=== PATIENT | male | born 1955 | race Caucasian/White ===

== ENCOUNTER → 2017-04-07 | Outpatient (CLI) | payer OTHER ==
[~2017-04-07] MED LIST: ASPIR 8181 MG PO; COZAAR 50 MG TA50 M2 PO; FISH OIL 1,001000 M2 PO; INVOKANA300 MG PO; JANUVIA100 MG PO; METFORMIN HCL500 MG PO; PRILOSEC OTC20 MG PO; SYNTHROID200 MCG PO; VITAMIN E400 UNIT PO; ZETIA10 MG PO; ZOCOR20 MG PO
[2017-04-07 10:23] LABS: HEMATOCRIT 50.7 % (42.0-52.0); HEMOGLOBIN 17.1 gm/dL (14.0-18.0); MCH 30.1 pg (26.0-34.0); MCHC 33.8 g/dL (28.0-37.0); MPV 8.4 fl. (7.2-11.1); RBC 5.69 mil/uL (4.50-6.00); RDW-CV 13.5 % (10.5-14.5); WBC 8.6 thou/uL (4.0-11.0)
[2017-04-07 10:27] LABS: URINE BILIRUBIN NEGATIVE (Negative); URINE BLOOD TRACE (Negative); URINE CLARITY CLEAR; URINE COLOR YELLOW; URINE GLUCOSE-RANDOM 3+ (Negative); URINE KETONES NEGATIVE (Negative); URINE LEUKOCYTES NEGATIVE (Negative); URINE NITRITE NEGATIVE (Negative); URINE PROTEIN NEGATIVE (Negative); URINE SPECIFIC GRAVITY >= 1.030 (1.005-1.030); URINE UROBILINOGEN 0.2 E.U./dl (0.2-1.0)
[2017-04-07 10:39] LABS: ALBUMIN 3.9 g/dL (3.4-5.0); ALKALINE PHOSPHATASE 39 U/L (46-116); ANION GAP 9 mmol/L (7-16); BUN 21 mg/dL (7-18); CALCIUM 8.8 mg/dL (8.5-10.1); CHLORIDE 104 mmol/L (98-107); CHOLESTEROL 150 mg/dL (<200); CO2 30 mmol/L (21-32); GLUCOSE 139 mg/dL (70-99); HDL CHOLESTEROL 44 mg/dL (>40); LDL CHOLESTEROL 92 mg/dL (<100); POTASSIUM 4.3 mmol/L (3.5-5.1); SERUM ASSESSMENT Clear; SGOT 19 U/L (15-37); SGPT 37 U/L (30-65); SODIUM 143 mmol/L (136-145); TC:HDL 3.4 Ratio (Not establshd); TOTAL BILIRUBIN 0.4 mg/dL (<0.1-1.0); TOTAL PROTEIN 8.1 g/dL (6.4-8.2); TRIGLYCERIDE 73 mg/dL (<150); VLDL 15 mg/dL (<40)
[2017-04-07 19:12] LABS: GLYCOHEMOGLOBIN (HGB A1C) 5.9 % (4.8-5.6)
== END ==
LOC: M.LAB 09:55
PROVIDERS: Family Medicine
DX: E11.9 Type 2 diabetes mellitus without complications (principal); E03.9 Hypothyroidism, unspecified

== ENCOUNTER → 2017-09-21 | Outpatient (CLI) | payer OTHER ==
[2017-09-21 10:43] LABS: ALKALINE PHOSPHATASE 41 U/L (46-116); ANION GAP 11 mmol/L (7-16); BUN 15 mg/dL (7-18); CHLORIDE 106 mmol/L (98-107); CHOLESTEROL 148 mg/dL (<200); CO2 26 mmol/L (21-32); CREATININE 0.9 mg/dL (0.6-1.3); GLUCOSE 170 mg/dL (70-99); HDL CHOLESTEROL 35 mg/dL (>40); LDL CHOLESTEROL 88 mg/dL (<100); POTASSIUM 4.1 mmol/L (3.5-5.1); SGOT 34 U/L (15-37); SGPT 83 U/L (30-65); SODIUM 143 mmol/L (136-145); TC:HDL 4.2 Ratio (Not establshd); TOTAL BILIRUBIN 0.6 mg/dL (<0.1-1.0); TOTAL PROTEIN 7.8 g/dL (6.4-8.2); TRIGLYCERIDE 129 mg/dL (<150); VLDL 26 mg/dL (<40)
[2017-09-21 10:47] LABS: SERUM ASSESSMENT Clear
[2017-09-22 16:08] LABS: GLYCOHEMOGLOBIN (HGB A1C) 7.3 % (4.8-5.6)
== END ==
LOC: M.LAB 09:18
PROVIDERS: Family Medicine
DX: E11.9 Type 2 diabetes mellitus without complications (principal); E78.5 Hyperlipidemia, unspecified

== ENCOUNTER 2017-10-19 12:38 | Emergency (ER) | payer OTHER ==
[~2017-10-19] VITALS: Ht 177.8 cm; Wt 113.4 kg
[2017-10-19] MEDS ORDERED: METFORMIN HCL500 MG PO (12:56)
[2017-10-19] MEDS ORDERED: INVOKANA300 MG PO (12:56)
[2017-10-19] MEDS ORDERED: ZETIA10 MG PO (12:57)
[2017-10-19] MEDS ORDERED: COZAAR 50 MG TA50 M2 PO (12:57)
[2017-10-19] MEDS ORDERED: ZOCOR20 MG PO (12:57)
[2017-10-19] MEDS ORDERED: SYNTHROID200 MCG PO (12:57)
[2017-10-19] MEDS ORDERED: JANUVIA100 MG PO (12:57)
[2017-10-19] MEDS ORDERED: ASPIR 8181 MG PO (12:58)
[2017-10-19] MEDS ORDERED: FISH OIL 1,001000 M2 PO (12:58)
[2017-10-19] MEDS ORDERED: PRILOSEC OTC20 MG PO (12:58)
[2017-10-19] MEDS ORDERED: VITAMIN E400 UNIT PO (12:59)
[2017-10-19 14:28] VITALS: BP 164/82
== END 2017-10-19 14:31 | disposition home or self-care (01) ==
LOC: M.ERS 12:38
DX: S61.411A Laceration without foreign body of right hand, initial encounter (principal); E11.9 Type 2 diabetes mellitus without complications; I10 Essential (primary) hypertension; E78.00 Pure hypercholesterolemia, unspecified; K21.9 Gastro-esophageal reflux disease without esophagitis; W45.8XXA Other foreign body or object entering through skin, initial encounter; Y93.89 Activity, other specified; Y92.89 Other specified places as the place of occurrence of the external cause; Y99.8 Other external cause status

== ENCOUNTER → 2018-04-12 | Outpatient (CLI) | payer OTHER ==
[2018-04-12 09:44] LABS: HEMATOCRIT 48.8 % (42.0-52.0); HEMOGLOBIN 16.6 gm/dL (14.0-18.0); MCH 29.8 pg (26.0-34.0); MCV 87.7 fL (80.0-100.0); MPV 8.7 fl. (7.2-11.1); RBC 5.56 mil/uL (4.50-6.00); RDW-CV 14.3 % (10.5-14.5); WBC 7.5 thou/uL (4.0-11.0)
[2018-04-12 09:54] LABS: ALBUMIN 3.9 g/dL (3.4-5.0); ALKALINE PHOSPHATASE 38 U/L (46-116); ANION GAP 11 mmol/L (7-16); BUN 17 mg/dL (7-18); CALCIUM 8.7 mg/dL (8.5-10.1); CHLORIDE 104 mmol/L (98-107); CHOLESTEROL 144 mg/dL (<200); CO2 27 mmol/L (21-32); GLUCOSE 147 mg/dL (70-99); HDL CHOLESTEROL 33 mg/dL (>40); LDL CHOLESTEROL 91 mg/dL (<100); POTASSIUM 3.9 mmol/L (3.5-5.1); SERUM ASSESSMENT Clear; SGOT 38 U/L (15-37); SGPT 93 U/L (30-65); SODIUM 142 mmol/L (136-145); TC:HDL 4.4 Ratio (Not establshd); TOTAL BILIRUBIN 0.5 mg/dL (<0.1-1.0); TOTAL PROTEIN 7.9 g/dL (6.4-8.2); TRIGLYCERIDE 102 mg/dL (<150); VLDL 20 mg/dL (<40)
[2018-04-12 23:07] LABS: GLYCOHEMOGLOBIN (HGB A1C) 7.6 % (4.8-5.6)
== END ==
LOC: M.LAB 09:08
PROVIDERS: Family Medicine
DX: Z00.00 Encounter for general adult medical examination without abnormal findings (principal); E11.9 Type 2 diabetes mellitus without complications; E78.5 Hyperlipidemia, unspecified; I10 Essential (primary) hypertension

== ENCOUNTER → 2018-10-19 | Outpatient (CLI) | payer MEDICARE, OTHER ==
[2018-10-19 09:35] LABS: ABSOLUTE BASOPHILS 0.1 thou/uL (0.0-0.2); ABSOLUTE EOSINOPHILS 0.1 thou/uL (0.0-0.7); ABSOLUTE LYMPHOCYTES 2.3 thou/uL (0.8-5.3); ABSOLUTE MONOCYTES 0.5 thou/uL (0.0-1.2); ABSOLUTE NEUTROPHILS 4.3 thou/uL (1.6-8.1); BASOPHILS 0.8 %; EOSINOPHILS 1.3 %; HEMOGLOBIN 16.1 gm/dL (14.0-18.0); MCH 29.8 pg (26.0-34.0); MCHC 33.5 g/dL (28.0-37.0); MCV 89.1 fL (80.0-100.0); MONOCYTES 6.4 %; MPV 8.2 fl. (7.2-11.1); NUCLEATED RBCS 0 /100WBC; PLATELET COUNT* 235 thou/uL (150-400); POLYS 59.5 %; RBC 5.39 mil/uL (4.50-6.00); RDW-CV 13.8 % (10.5-14.5); WBC 7.3 thou/uL (4.0-11.0)
[2018-10-19 09:50] LABS: ALBUMIN 3.9 g/dL (3.4-5.0); ALKALINE PHOSPHATASE 41 U/L (46-116); ANION GAP 9 mmol/L (7-16); BUN 19 mg/dL (7-18); CALCIUM 8.9 mg/dL (8.5-10.1); CHLORIDE 103 mmol/L (98-107); CHOLESTEROL 137 mg/dL (<200); CO2 29 mmol/L (21-32); GLUCOSE 135 mg/dL (70-99); HDL CHOLESTEROL 34 mg/dL (>40); LDL CHOLESTEROL 83 mg/dL (<100); POTASSIUM 4.1 mmol/L (3.5-5.1); SERUM ASSESSMENT Clear; SGOT 25 U/L (15-37); SGPT 51 U/L (30-65); SODIUM 141 mmol/L (136-145); TOTAL BILIRUBIN 0.7 mg/dL (<0.1-1.0); TOTAL PROTEIN 7.5 g/dL (6.4-8.2); TRIGLYCERIDE 103 mg/dL (<150); VLDL 21 mg/dL (<40)
[2018-10-20 03:07] LABS: GLYCOHEMOGLOBIN (HGB A1C) 6.7 % (4.8-5.6)
== END ==
LOC: M.LAB 09:13
PROVIDERS: Family Medicine
DX: I10 Essential (primary) hypertension (principal); E11.69 Type 2 diabetes mellitus with other specified complication; E66.9 Obesity, unspecified; K21.9 Gastro-esophageal reflux disease without esophagitis; E03.9 Hypothyroidism, unspecified; E78.5 Hyperlipidemia, unspecified; Z12.5 Encounter for screening for malignant neoplasm of prostate

== ENCOUNTER 2019-02-17 13:25 | Emergency (ER) | payer MEDICARE, OTHER ==
[~2019-02-17] VITALS: Ht 177.8 cm; Wt 108.9 kg
[2019-02-17] MEDS ORDERED: BYDUREON B2 MG/0.85 SUBQ (13:52)
[2019-02-17] MEDS ORDERED: TURMERIC500 M2 PO (13:53)
[2019-02-17 14:22] LABS: ABSOLUTE BASOPHILS 0.1 thou/uL (0.0-0.2); ABSOLUTE EOSINOPHILS 0.1 thou/uL (0.0-0.7); ABSOLUTE LYMPHOCYTES 2.7 thou/uL (0.8-5.3); ABSOLUTE MONOCYTES 1.8 thou/uL (0.0-1.2); ABSOLUTE NEUTROPHILS 6.9 thou/uL (1.6-8.1); BASOPHILS 0.7 %; EOSINOPHILS 0.5 %; HEMATOCRIT 40.3 % (42.0-52.0); HEMOGLOBIN 14.1 gm/dL (14.0-18.0); LYMPHOCYTES 23.3 %; MCH 29.4 pg (26.0-34.0); MONOCYTES 15.4 %; MPV 8.5 fl. (7.2-11.1); NUCLEATED RBCS 0 /100WBC; PLATELET COUNT* 281 thou/uL (150-400); POLYS 60.1 %; RDW-CV 13.2 % (10.5-14.5); WBC 11.5 thou/uL (4.0-11.0)
[2019-02-17 14:23] LABS: INFLUENZA A ANTIGEN Negative (Negative); INFLUENZA B ANTIGEN Negative (Negative)
[2019-02-17 14:33] LABS: CALCIUM 9.1 mg/dL (8.5-10.1); CREATININE 1.1 mg/dL (0.6-1.3); POTASSIUM 3.5 mmol/L (3.5-5.1)
[2019-02-17 14:43] LABS: ALBUMIN 3.2 g/dL (3.4-5.0); TOTAL BILIRUBIN 0.6 mg/dL (<0.1-1.0); TOTAL PROTEIN 8.4 g/dL (6.4-8.2)
[2019-02-17] MEDS ORDERED: DOXYCYCLINE 10100 MG PO (15:33)
[2019-02-17] MEDS ORDERED: VENTOLIN HFA 1818 GM INH (15:33)
[2019-02-17 16:34] VITALS: BP 150/86
--- NOTE | 2019-02-18 12:30 | EKG ---
[place] [address] ELECTROCARDIOGRAM REPORT Name: NEGRITA ZAMUDIO Room: [facility].#: [id number] Admission: 02/17/19 Attend Phys: Discharge: 02/17/19 Date of : 51 Report #: [id number] THIS REPORT FOR: //name// [facility] ED Test Date: 2019-02-17 Test Time: 14:30:13 Pat Name: NEGRITA ZAMUDIO Department: Room: Gender: M Automatic Clipper: DEANGELO : 1955 Requested By: Carolyn Villafuerte Order Number: [id number] MD: Alexei Mclean Measurements Intervals [place] Rate: 90 P: 63 [place]: 173 QRS: 71 QRSD: 108 T: 25 QT: 361 QTc: 442 Interpretive Statements Sinus rhythm Probable left atrial enlargement No previous ECG available for comparison Electronically Signed On 02-18-2019 12:29:52 [employer] by Alexei Mclean [email or web address] <ELECTRONICALLY SIGNED> By: Alexei Mclean MD, [facility] 02/18/19 1229 1430 1430 Alexei Mclean MD, FACC /EPI
== END 2019-02-17 16:35 | disposition home or self-care (01) ==
LOC: M.ERS 13:25
PROVIDERS: Nurse Practitioner Family
DX: J18.8 Other pneumonia, unspecified organism (principal); E11.9 Type 2 diabetes mellitus without complications; I10 Essential (primary) hypertension; E78.00 Pure hypercholesterolemia, unspecified; K21.9 Gastro-esophageal reflux disease without esophagitis

== ENCOUNTER 2019-04-11 14:34 | Inpatient (IN) | payer MEDICARE, OTHER ==
[~2019-04-11] VITALS: Ht 177.8 cm; Wt 113.4 kg
[~2019-04-11 14:34] MED LIST changes: +BYDUREON B2 MG/0.85 SUBQ; +DOXYCYCLINE 10100 MG PO; +TURMERIC500 M2 PO; +VENTOLIN HFA 1818 GM INH
[2019-04-11 14:43] VITALS: BP 187/114
[2019-04-11 16:28] LABS: ABSOLUTE BASOPHILS 0.1 thou/uL (0.0-0.2); ABSOLUTE EOSINOPHILS 0.3 thou/uL (0.0-0.7); ABSOLUTE LYMPHOCYTES 3.1 thou/uL (0.8-5.3); ABSOLUTE NEUTROPHILS 5.7 thou/uL (1.6-8.1); BASOPHILS 0.6 %; EOSINOPHILS 2.8 %; HEMATOCRIT 44.1 % (42.0-52.0); HEMOGLOBIN 15.2 gm/dL (14.0-18.0); LYMPHOCYTES 30.2 %; MCH 29.5 pg (26.0-34.0); MCHC 34.5 g/dL (28.0-37.0); MCV 85.6 fL (80.0-100.0); MONOCYTES 10.3 %; MPV 8.6 fl. (7.2-11.1); NUCLEATED RBCS 0 /100WBC; PLATELET COUNT* 252 thou/uL (150-400); POLYS 56.1 %; RBC 5.15 mil/uL (4.50-6.00); RDW-CV 14.3 % (10.5-14.5); WBC 10.2 thou/uL (4.0-11.0)
[2019-04-11 16:30] LABS: INFLUENZA A ANTIGEN Negative (Negative); INFLUENZA B ANTIGEN Negative (Negative)
[2019-04-11 16:34] LABS: APTT 25.9 Seconds (25.0-31.3); CREATININE 0.9 mg/dL (0.6-1.3); POTASSIUM 3.8 mmol/L (3.5-5.1)
[2019-04-11 16:45] LABS: ALBUMIN 3.7 g/dL (3.4-5.0); TOTAL BILIRUBIN 0.3 mg/dL (<0.1-1.0); TOTAL PROTEIN 7.9 g/dL (6.4-8.2)
[2019-04-11] MEDS ORDERED: MEDROLDOSEPACK PO (17:26)
[2019-04-11] MEDS ORDERED: AUGMENTIN 875-1 EACH PO (17:27)
[2019-04-11 19:43] VITALS: BP 175/85
[2019-04-11 20:00] VITALS: BP 181/96
[2019-04-11 22:05] VITALS: BP 182/99
[2019-04-12 03:56] VITALS: BP 172/108
[2019-04-12 06:30] VITALS: BP 158/105
[2019-04-12 07:30] VITALS: BP 156/86
[2019-04-12 15:01] LABS: URINE BILIRUBIN NEGATIVE (Negative); URINE BLOOD NEGATIVE (Negative); URINE CLARITY CLEAR; URINE COLOR YELLOW; URINE GLUCOSE-RANDOM 3+ (Negative); URINE KETONES 2+ (Negative); URINE LEUKOCYTES-REFLEX NEGATIVE (Negative); URINE NITRITE-REFLEX NEGATIVE (Negative); URINE PROTEIN NEGATIVE (Negative); URINE UROBILINOGEN 0.2 E.U./dl (0.2-1.0)
[2019-04-12 16:00] VITALS: BP 154/68
--- NOTE | 2019-04-12 16:32 | EKG ---
[place] [address] ELECTROCARDIOGRAM REPORT Name: LIZZNEGRITA VENESSA Room: [address] ADM [place] .R.#: [id number] Admission: 04/11/19 Attend Phys: Ben Osborne Discharge: Date of : 51 Date of Service: 04/11/19 1602 Report #: [id number] THIS REPORT FOR: //name// [facility] ED Test Date: 2019-04-11 Test Time: 16:02:09 Pat Name: NEGRITA ZAMUDIO Department: Room: [facility] Gender: M Check Out Clerk: DAMASO : 1955 Requested By: Carolyn Villafuerte Order Number: [id number] MD: Alexei Mclean Measurements Intervals [place] Rate: 76 P: 49 [place]: 163 QRS: 73 QRSD: 110 T: 9 QT: 394 QTc: 444 Interpretive Statements Sinus rhythm Compared to ECG 02/17/2019 14:30:13 No significant changes Electronically Signed On 04-12-2019 16:31:04 [employer] by Alexei Mclean [email or web address] <ELECTRONICALLY SIGNED> By: Alexei Mclean MD, [facility] 04/12/19 1631 1602 1602 Alexei Mclean MD, [facility] /EPI
--- NOTE | 2019-04-12 16:35 | 2DMMODE ---
[place] [address] 2 D/M-MODE ECHOCARDIOGRAM Name: ZAMUDIONEGRITA Room: [address] IN [facility]#: [id number] Admission: 04/11/19 Attend Phys: Ben Osborne Discharge: Date of : 51 Date of Service: 04/12/19 1634 Report #: [id number] THIS REPORT FOR: cc: Kevin Fuentes,Watson Nelson MD [facility] ~ APPROVED REPORT Study performed: 04/12/2019 15:34:00 EXAM: Comprehensive 2D, Doppler, and color-flow Echocardiogram Patient Location: In-Patient Room #: [facility] BSA: 2.29 HR: 110 bpm BP: 156/86 mmHg Other Information Study Quality: Good Indications Recurrent pna 2D Dimensions IVSd: 12.83 (7-11mm) LVOT Diam: 21.00 (18-24mm) LVDd: 48.49 mm PWd: 11.94 (7-11mm) Ascending Ao: 33.14 (22-36mm) LVDs: 25.09 (25-40mm) Aortic Root: 25.99 mm Volumes Left Atrial Volume (Systole) LA ESV Index: 18.50 mL/m2 Aortic Valve AoV Peak Sundeep.: 1.65 m/s AO Peak Gr.: 10.89 mmHg LVOT Max P.83 mmHg AO Mean Gr.: 7.02 mmHg LVOT Mean P.47 mmHg LVOT Max V: 1.10 m/s AO V2 VTI: 30.01 cm LVOT Mean V: 0.73 m/s DARRICK (VTI): 2.33 cm2 LVOT V1 VTI: 20.23 [place] [address] 2 D/M-MODE ECHOCARDIOGRAM Name: NEGRITA ZAMUDIO Room: [address] IN .R.#: [id number] Admission: 04/11/19 Attend Phys: Ben Osborne Discharge: Date of : 51 Date of Service: 04/12/19 1634 Report #: [id number] Medial E' Sundeep.: 0.15 m/s Lateral E' Sundeep.: 0.13 m/s Pulmonary Valve PV Peak Sundeep.: 1.14 m/s PV Peak Gr.: 5.22 mmHg Left Ventricle The left ventricle is normal size. There is normal LV segmental wall motion. Mild concentric left ventricular hypertrophy. Left ventricular systolic function is normal. LVEF is 65-70%. Transmitral Doppler flow pattern suggests impaired LV relaxation. Right Ventricle The right ventricle is normal size. The right ventricular systolic function is normal. Atria The left atrium size is normal. The right atrium size is normal. Aortic Valve The aortic valve is normal in structure. No aortic regurgitation is present. There is no aortic valvular stenosis. Mitral Valve The mitral valve is normal in structure. There is no mitral valve regurgitation noted. No evidence of mitral valve stenosis. Tricuspid Valve The tricuspid valve is normal in structure. There is no tricuspid valve regurgitation noted. Pulmonic Valve The pulmonary valve is normal in structure. There is no pulmonic valvular regurgitation. Great Vessels The aortic root is normal in size. IVC is normal in size and collapses >50% with inspiration. Pericardium There is no pericardial effusion. <Conclusion> The left ventricle is normal size. Mild concentric [place] [address] 2 D/M-MODE ECHOCARDIOGRAM Name: NEGRITA ZAMUDIO Room: [address] [place] ..#: [id number] Admission: 04/11/19 Attend Phys: Ben Osborne Discharge: Date of : 51 Date of Service: 04/12/19 163 Report #: [id number] Left ventricular systolic function is normal. LVEF is 65-70%. Transmitral Doppler flow pattern suggests impaired LV relaxation. IVC is normal in size and collapses >50% with inspiration. <ELECTRONICALLY SIGNED> By: Watson Mitchell MD, [facility] 04/12/19 1634 33 163 Watson Mitchell MD, FACC /INF
[2019-04-12 20:00] VITALS: BP 158/90
[2019-04-13 08:28] LABS: HEMATOCRIT 44.2 % (42.0-52.0); HEMOGLOBIN 15.1 gm/dL (14.0-18.0); MCH 29.2 pg (26.0-34.0); MCHC 34.1 g/dL (28.0-37.0); MCV 85.7 fL (80.0-100.0); MPV 8.6 fl. (7.2-11.1); RBC 5.16 mil/uL (4.50-6.00); RDW-CV 14.6 % (10.5-14.5); WBC 18.8 thou/uL (4.0-11.0)
[2019-04-13 08:41] LABS: ALBUMIN 3.7 g/dL (3.4-5.0); CALCIUM 8.8 mg/dL (8.5-10.1); MAGNESIUM 1.8 mg/dL (1.8-2.4); POTASSIUM 3.8 mmol/L (3.5-5.1); TOTAL BILIRUBIN 0.4 mg/dL (<0.1-1.0); TOTAL PROTEIN 8.1 g/dL (6.4-8.2)
[2019-04-13 10:17] VITALS: BP 144/90
[2019-04-13 16:30] VITALS: BP 150/91
[2019-04-13 20:40] VITALS: BP 154/83
[2019-04-14 09:00] VITALS: BP 140/85
[2019-04-14] MEDS ORDERED: MEDROL4 M1 PO (09:45)
[2019-04-14] MEDS ORDERED: PROAIR HFA8.5 GM INH (09:45)
[2019-04-14] MEDS ORDERED: NORVASC5 MG PO (09:45)
[2019-04-14] MEDS ORDERED: CEFDINIR300 MG PO (09:45)
[2019-04-14] MEDS ORDERED: ADVAIR 100-501 EACH INH (09:45)
[2019-04-14 11:26] VITALS: BP 140/85
== END 2019-04-14 12:14 | disposition home or self-care (01) | DRG 177 ==
LOC: M.ERS 14:34 → M.TBA-ER 18:00 → M.ORTHSURG 18:00
PROVIDERS: Internal Medicine; Nurse Practitioner Family; ADMIT Internal Medicine
DX: J15.6 Pneumonia due to other Gram-negative bacteria (principal); J96.01 Acute respiratory failure with hypoxia; J44.1 Chronic obstructive pulmonary disease with (acute) exacerbation; E11.65 Type 2 diabetes mellitus with hyperglycemia; R91.1 Solitary pulmonary nodule; I10 Essential (primary) hypertension; D72.829 Elevated white blood cell count, unspecified; K21.9 Gastro-esophageal reflux disease without esophagitis; E03.9 Hypothyroidism, unspecified; E78.5 Hyperlipidemia, unspecified; E78.00 Pure hypercholesterolemia, unspecified; T38.0X5A Adverse effect of glucocorticoids and synthetic analogues, initial encounter; T80.89XA Other complications following infusion, transfusion and therapeutic injection, initial encounter; Y84.8 Other medical procedures as the cause of abnormal reaction of the patient, or of later complication, without mention of misadventure at the time of the procedure; E66.9 Obesity, unspecified; Z68.35 Body mass index [BMI] 35.0-35.9, adult; Z79.84 Long term (current) use of oral hypoglycemic drugs; Z79.82 Long term (current) use of aspirin; Z79.899 Other long term (current) drug therapy; Z72.89 Other problems related to lifestyle; Z80.1 Family history of malignant neoplasm of trachea, bronchus and lung; Z87.01 Personal history of pneumonia (recurrent); Z83.6 Family history of other diseases of the respiratory system; Z87.891 Personal history of nicotine dependence; Y92.89 Other specified places as the place of occurrence of the external cause; Z79.4 Long term (current) use of insulin; Z79.51 Long term (current) use of inhaled steroids

== ENCOUNTER → 2019-04-25 | Outpatient (CLI) | payer MEDICARE, OTHER ==
[~2019-04-25] MED LIST changes: +ADVAIR 100-501 EACH INH; +AUGMENTIN 875-1 EACH PO; +CEFDINIR300 MG PO; +MEDROL4 M1 PO; +MEDROLDOSEPACK PO; +NORVASC5 MG PO; +PROAIR HFA8.5 GM INH
[2019-04-25 09:05] LABS: ABSOLUTE BASOPHILS 0.1 thou/uL (0.0-0.2); ABSOLUTE EOSINOPHILS 0.2 thou/uL (0.0-0.7); ABSOLUTE LYMPHOCYTES 2.7 thou/uL (0.8-5.3); ABSOLUTE MONOCYTES 0.6 thou/uL (0.0-1.2); BASOPHILS 0.8 %; EOSINOPHILS 1.6 %; HEMATOCRIT 43.8 % (42.0-52.0); HEMOGLOBIN 15.6 gm/dL (14.0-18.0); LYMPHOCYTES 28.2 %; MCH 30.4 pg (26.0-34.0); MCHC 35.6 g/dL (28.0-37.0); MCV 85.3 fL (80.0-100.0); MONOCYTES 6.6 %; MPV 7.7 fl. (7.2-11.1); NUCLEATED RBCS 0 /100WBC; PLATELET COUNT* 247 thou/uL (150-400); POLYS 62.8 %; RBC 5.13 mil/uL (4.50-6.00); RDW-CV 14.4 % (10.5-14.5); WBC 9.5 thou/uL (4.0-11.0)
[2019-04-25 09:31] LABS: ALBUMIN 3.4 g/dL (3.4-5.0); ALKALINE PHOSPHATASE 42 U/L (46-116); ANION GAP 10 mmol/L (7-16); BUN 15 mg/dL (7-18); CALCIUM 8.1 mg/dL (8.5-10.1); CHLORIDE 102 mmol/L (98-107); CHOLESTEROL 145 mg/dL (<200); CO2 26 mmol/L (21-32); CREATININE 0.9 mg/dL (0.6-1.3); GLUCOSE 246 mg/dL (70-99); HDL CHOLESTEROL 40 mg/dL (>40); LDL CHOLESTEROL 83 mg/dL (<100); POTASSIUM 3.8 mmol/L (3.5-5.1); SERUM ASSESSMENT Clear; SGOT 24 U/L (15-37); SGPT 74 U/L (30-65); SODIUM 138 mmol/L (136-145); TC:HDL 3.6 Ratio (Not establshd); TOTAL BILIRUBIN 0.5 mg/dL (<0.1-1.0); TOTAL PROTEIN 7.3 g/dL (6.4-8.2); TRIGLYCERIDE 111 mg/dL (<150); VLDL 22 mg/dL (<40)
== END ==
LOC: M.LAB 08:33
PROVIDERS: Family Medicine
DX: Z12.5 Encounter for screening for malignant neoplasm of prostate (principal); E11.40 Type 2 diabetes mellitus with diabetic neuropathy, unspecified; E03.9 Hypothyroidism, unspecified; I10 Essential (primary) hypertension; E78.5 Hyperlipidemia, unspecified

== ENCOUNTER → 2019-08-01 | Outpatient (CLI) | payer MEDICARE, OTHER | LOC: M.LAB 09:11 | PROVIDERS: ATTEND Family Medicine | DX: E11.9 Type 2 diabetes mellitus without complications (principal) ==

== ENCOUNTER → 2019-08-23 | Outpatient (CLI) | payer MEDICARE, OTHER | LOC: M.LAB 10:46 | PROVIDERS: ATTEND Family Medicine | DX: Z11.59 Encounter for screening for other viral diseases (principal) ==

== ENCOUNTER → 2019-11-07 | Outpatient (CLI) | payer MEDICARE, OTHER ==
[2019-11-07 09:03] LABS: ALBUMIN 3.7 g/dL (3.4-5.0); ALKALINE PHOSPHATASE 38 U/L (46-116); ANION GAP 7 mmol/L (7-16); BUN 21 mg/dL (7-18); CALCIUM 8.9 mg/dL (8.5-10.1); CHLORIDE 102 mmol/L (98-107); CHOLESTEROL 141 mg/dL (<200); CO2 30 mmol/L (21-32); CREATININE 0.9 mg/dL (0.6-1.3); GLUCOSE 158 mg/dL (70-99); HDL CHOLESTEROL 35 mg/dL (>40); LDL CHOLESTEROL 84 mg/dL (<100); POTASSIUM 4.3 mmol/L (3.5-5.1); SGOT 18 U/L (15-37); SGPT 49 U/L (30-65); SODIUM 139 mmol/L (136-145); TOTAL BILIRUBIN 0.3 mg/dL (<0.1-1.0); TOTAL PROTEIN 7.8 g/dL (6.4-8.2); TRIGLYCERIDE 110 mg/dL (<150); VLDL 22 mg/dL (<40)
[2019-11-07 09:06] LABS: SERUM ASSESSMENT Clear
== END ==
LOC: M.LAB 08:22
PROVIDERS: ATTEND Family Medicine
DX: E11.69 Type 2 diabetes mellitus with other specified complication (principal); E03.9 Hypothyroidism, unspecified

== ENCOUNTER → 2020-11-12 | Outpatient (CLI) | payer MEDICARE, OTHER ==
[2020-11-12 09:48] LABS: ABSOLUTE BASOPHILS 0.1 thou/uL (0.0-0.2); ABSOLUTE EOSINOPHILS 0.1 thou/uL (0.0-0.7); ABSOLUTE LYMPHOCYTES 2.9 thou/uL (0.8-5.3); ABSOLUTE MONOCYTES 0.7 thou/uL (0.0-1.2); BASOPHILS 0.9 %; EOSINOPHILS 1.1 %; HEMATOCRIT 48.9 % (42.0-52.0); HEMOGLOBIN 16.8 gm/dL (14.0-18.0); MCH 29.8 pg (26.0-34.0); MCHC 34.4 g/dL (28.0-37.0); MCV 86.7 fL (80.0-100.0); MONOCYTES 6.7 %; MPV 7.9 fl. (7.2-11.1); NUCLEATED RBCS 0 /100WBC; PLATELET COUNT* 257 thou/uL (150-400); POLYS 61.3 %; RBC 5.64 mil/uL (4.50-6.00); RDW-CV 13.8 % (10.5-14.5); WBC 9.7 thou/uL (4.0-11.0)
[2020-11-12 10:04] LABS: ALBUMIN 4.2 g/dL (3.4-5.0); ALKALINE PHOSPHATASE 44 U/L (46-116); ANION GAP 9 mmol/L (7-16); BUN 24 mg/dL (7-18); CHLORIDE 100 mmol/L (98-107); CHOLESTEROL 150 mg/dL (<200); CO2 28 mmol/L (21-32); GLUCOSE 182 mg/dL (70-99); HDL CHOLESTEROL 39 mg/dL (>40); LDL CHOLESTEROL 89 mg/dL (<100); POTASSIUM 4.5 mmol/L (3.5-5.1); SGOT 19 U/L (15-37); SGPT 49 U/L (30-65); SODIUM 137 mmol/L (136-145); TC:HDL 3.8 Ratio (Not establshd); TOTAL BILIRUBIN 0.4 mg/dL (<0.1-1.0); TOTAL PROTEIN 8.2 g/dL (6.4-8.2); TRIGLYCERIDE 110 mg/dL (<150); VLDL 22 mg/dL (<40)
[2020-11-12 10:07] LABS: SERUM ASSESSMENT Clear
[2020-11-12 23:06] LABS: GLYCOHEMOGLOBIN (HGB A1C) 7.9 % (4.8-5.6)
== END ==
LOC: M.LAB 09:27
PROVIDERS: ATTEND Family Medicine
DX: I10 Essential (primary) hypertension (principal); E11.69 Type 2 diabetes mellitus with other specified complication; E03.9 Hypothyroidism, unspecified; E66.9 Obesity, unspecified; R74.02 Elevation of levels of lactic acid dehydrogenase [LDH]